=== PATIENT | female | born 1960 | race Two or more races ===

== ENCOUNTER 2024-11-24 07:55 | Outpatient (REF) | payer OTHER, SELFPAY ==
--- OUTSIDE RECORDS SUMMARY | 2024-11-24 08:15 | XMS_ITS ---
Author Organization [facility] Address [address] [place] [address] Care Team Providers Care Chief Deputy Name Role Phone Felicia Graf Primary Care Provider Unavailab meryl Douglass Jr, Kei Blanca Encounters Encounter Location Date Provider Diagnosis [facility] [address] [place] [address] 08/04/2024 Kei Douglass Jr Plan Of Treatment No Information Progress Notes * KAMAmelia KRISTIE DILLDOB: 1960 (63 yo F)Acc No.[id number]:08/04/2024 Patient:?RINKU KRISTIE DILL :1960???Age:63 Y???Sex:Female Address:[address] [place] [address] , [place], [address] * true * Date:? Generated for Manolo smith/Swapna/eTransmitting on:?11/24/2024 08:15 AM EDT
--- OUTSIDE RECORDS SUMMARY | 2024-11-24 08:15 | XMS_ITS | Patient Health Record ---
Author Organization [facility] Address [address] [place] [address] Care Team Providers Care Ferryboat Helper Name Role Phone Felicia Graf Primary Care Provider Unavailab Kei Vasquez Jr Reason For Referral No Information Encounters Encounter Location Date Provider Diagnosis [facility] [address] [place] [address] 08/04/2024 Kei Douglass Jr Plan Of Treatment No Information Insurance Providers Payer Name Payer Address Payer Phone Subscriber Number Group Number Insured Name Patient Relationship to Insured Coverage Start Date Coverage End Date [facility] [employer] [facility] [address] [place] [address] [id number] KRISTIE BEST Self - patient is the insured
[2024-11-24 08:18] LABS: MANUAL DIFF FLAG NO
[2024-11-24 08:52] LABS: Basophils Absolute Auto 0.1 X10*3/uL (0.0-0.2); Basophils Percent Auto 0.8 % (0-2); Eosinophils Absolute Auto 0.2 X10*3/uL (0.0-0.4); Eosinophils Percent Auto 3.4 % (0-4); Hemoglobin 15.1 g/dl (12.0-16.0); Imm Gran Abs Auto 0.02 X10*3/uL (0.00-0.03); Imm Gran Pct Auto 0.3 % (0.0-0.4); Lymphocytes Absolute Auto 2.6 X10*3/uL (1.2-4.9); Mean Corpuscular HGB Conc 31.5 g/dl (31.0-35.0); Mean Corpuscular Volume 89.1 fL (80.0-98.0); Mean Platelet Volume 11.8 fL (9.4-12.3); Monocytes Absolute Auto 0.6 X10*3/uL (0.1-1.2); Monocytes Percent Auto 10.2 % (2-11); Neutrophils Absolute Auto 2.7 x10*3/uL (2.0-8.3); Neutrophils Percent Auto 43.3 % (45-73); Platelet Count 246 X10*3/uL (160-400); Red Blood Count 5.39 X10*6/uL (4.20-5.50); White Blood Count 6.3 X10*3/uL (4.8-10.8)
[2024-11-24 09:02] LABS: Estimated Average Glucose 335 mg/dL; Hemoglobin A1C 476.7104 umol/L; Hemoglobin A1c % 13.3 % (<6.0); Total Hemoglobin (HGBA1C) 3921.5744 umol/L
[2024-11-24 09:27] LABS: Alanine Aminotransferase 54 U/L (0-31); Albumin Level 4.3 g/dL (3.5-5.0); Alkaline Phosphatase 129 U/L (39-117); Anion Gap 13 (12-20); Aspartate Amino Transferase 30 U/L (5-31); Bilirubin Total 0.7 mg/dL (0.0-1.0); Blood Urea Nitrogen 12 mg/dL (9-16); Calcium 10.1 mg/dL (8.4-10.2); Carbon Dioxide 28 mmol/L (22-29); Chloride 97 mmol/L (96-108); Cholesterol 171 mg/dL (<200); Estimated Glomerular Filt Rate > 60; Glucose Random 339 mg/dL (60-115); HDL Cholesterol 52 mg/dL (>40); LDL Cholesterol Calculated 99 mg/dL (<100); Potassium 4.3 mmol/L (3.3-5.1); Sodium 134 mmol/L (135-145); Total Protein 8.3 g/dL (6.5-8.0); Triglycerides 101 mg/dL (<150)
[2024-11-24 09:43] LABS: Thyroid Stimulating Hormone 1.15 uIU/mL (0.32-4.0)
[2024-11-24 10:01] LABS: Creatinine Urine 149.35 mg/dL; Microalbum/Creatinine Ratio Ur 11.3 ug/mg cr (<30)
== END 2024-11-24 07:56 | disposition home or self-care (01) ==
LOC: HO.LAB 07:55
PROVIDERS: PCP Internal Medicine; Visit Provider Internal Medicine
DX: Z00.01 Encounter for general adult medical examination with abnormal findings (principal); E07.89 Other specified disorders of thyroid; E11.65 Type 2 diabetes mellitus with hyperglycemia; E78.2 Mixed hyperlipidemia; I10 Essential (primary) hypertension
CPT/HCPCS: 36415; 80053; 80061; 82043; 82570; 83036; 84443; 85025

== ENCOUNTER 2025-03-10 09:10 | Outpatient (REF) | payer OTHER, SELFPAY ==
[2025-03-10 10:14] LABS: Alanine Aminotransferase 55 U/L (0-31); Albumin Level 4.4 g/dL (3.5-5.0); Alkaline Phosphatase 82 U/L (39-117); Anion Gap 14 (12-20); Aspartate Amino Transferase 36 U/L (5-31); Blood Urea Nitrogen 14 mg/dL (9-16); Calcium 9.6 mg/dL (8.4-10.2); Carbon Dioxide 27 mmol/L (22-29); Chloride 102 mmol/L (96-108); Estimated Glomerular Filt Rate > 60; Potassium 4.2 mmol/L (3.3-5.1); Sodium 139 mmol/L (135-145); Total Protein 7.9 g/dL (6.5-8.0)
[2025-03-10 10:17] LABS: Hemoglobin A1C 335.5100 umol/L; Total Hemoglobin (HGBA1C) 3564.8807 umol/L
== END 2025-03-10 09:11 | disposition home or self-care (01) ==
LOC: HO.LAB 09:10
PROVIDERS: PCP Internal Medicine; Visit Provider Internal Medicine
DX: E11.65 Type 2 diabetes mellitus with hyperglycemia (principal); I10 Essential (primary) hypertension; E07.89 Other specified disorders of thyroid; E78.00 Pure hypercholesterolemia, unspecified
CPT/HCPCS: 36415; 80053; 83036